=== PATIENT | female | born 1990 | race Caucasian/White ===

== ENCOUNTER 2021-11-16 10:14 | Outpatient (CLI) | payer MEDICAID, SELFPAY ==
--- NOTE | 2021-11-16 | CT_ITS ---
WS: [id number] Exam: CT chest w con* [id number] Date/Time of Exam: 11/16/2021 12:00 AM Reason For Exam: SOB DLP: 1011.[address] scans at [facility] use at least one of these dose optimization techniques: automated e xposure control; mA and/or kV adjustment per patient size (includes targeted exams where dose is matc hed to clinical indication); or iterative reconstruction. The lungs are fully expanded and clear. No sign of pulmonary mass or nodule. No mediastinal or hilar lymphadenopathy. The airway is patent. The thoracic aorta is normal in caliber. The central pulmonary arteries are clear. No pleural or pericardial effusion. Normal thyroid tissue. Osseous structures ar e intact. No chest wall defects. CT sections of the upper right abdomen demonstrate hepatic steatosis . CT/CT chest w con* [id number] IMPRESSION: 1. No suspicious pulmonary mass or nodule. 2. No lymphadenopathy in the chest. No other significant finding.
[2021-11-16] MEDS: iohexol 300 mg/mL 100 mL Btl IV (11:46)
== END 2021-11-16 10:15 | disposition home or self-care (01) ==
PROVIDERS: Visit Provider Nurse Practitioner Family
DX: R06.02 Shortness of breath (principal)
CPT/HCPCS: 71260; Q9967

== ENCOUNTER → 2025-02-21 10:18 | Outpatient (BNVA) | payer MEDICAID, SELFPAY | PROVIDERS: Visit Provider Psychiatry & Neurology Psychiatry | DX: Z79.899 Other long term (current) drug therapy (principal) | CPT/HCPCS: 80061; 83036 ==